=== PATIENT | male | born 1990 ===

== ENCOUNTER 2021-07-04 13:38 | Emergency (ER) | payer OTHER ==
[2021-07-04] MEDS ORDERED: Acetaminophen/oxyCODONE 325-5 MG Tab PO PRN (15:01)
[2021-07-04] MEDS ORDERED: Acetaminophen/oxyCODONE 325-5 MG Tab ONE ×2 (15:15→18:00)
== END 2021-07-04 18:20 | disposition home or self-care (01) ==
LOC: LB.ED 13:38
DX: M54.2 Cervicalgia (principal); M25.511 Pain in right shoulder; J98.59 Other diseases of mediastinum, not elsewhere classified
CPT/HCPCS: 36415; 71250; 72125; 74176; 80048; 81001; 82550; 85025; 99284; A9270